=== PATIENT | female | born 1995 | race Caucasian/White ===

== ENCOUNTER 2020-04-15 20:36 | Emergency (ER) | payer OTHER ==
[2020-04-15 21:28] LABS: BASOPHILS % (AUTO) 0.3 %; EOSINOPHILS # (AUTO) 0.1 10^3/uL (0.0-0.7); EOSINOPHILS % (AUTO) 1.2 %; HGB - HEMOGLOBIN 13.2 g/dL (12.0-16.0); LYMPHOCYTES # (AUTO) 2.3 10^3/uL (1.5-3.5); MEAN CORPUSCULAR HEMOGLOBIN 29.5 pg (27.0-31.0); MEAN CORPUSCULAR HGB CONC 32.9 g/dL (32.0-36.0); MEAN CORPUSCULAR VOLUME 89.7 fL (81.0-99.0); MEAN PLATELET VOLUME 9.5 fL (7.9-10.8); MONOCYTES # (AUTO) 0.5 10^3/uL (0.0-1.0); MONOCYTES % (AUTO) 8.4 %; NEUTROPHILS # (AUTO) 3.5 10^3/uL (1.5-6.6); NEUTROPHILS % (AUTO) 53.8 %; PLT - PLATELET COUNT 316 10^3/uL (130-450); RED BLOOD COUNT 4.47 10^6/uL (4.20-5.40); RED CELL DISTRIBUTION WIDTH 12.5 % (12.0-15.0); WHITE BLOOD COUNT 6.4 x10^3/uL (4.8-10.8)
[2020-04-15 21:36] LABS: ALBUMIN/GLOBULIN RATIO 1.2 (1.0-2.2); BILIRUBIN,TOTAL 0.4 mg/dL (0.2-1.0); CALCIUM 9.1 mg/dL (8.5-10.3); CREATININE 0.9 mg/dL (0.4-1.0); TOTAL PROTEIN 7.3 g/dL (6.7-8.2)
[2020-04-15 22:09] LABS: BILIRUBIN,URINE NEGATIVE (NEGATIVE); GLUCOSE, URINE (UA) NEGATIVE (NEGATIVE); KETONES,URINE (UA) NEGATIVE (NEGATIVE); LEUKOCYTE ESTERASE, URINE NEGATIVE (NEGATIVE); NITRITE,URINE NEGATIVE (NEGATIVE); OCCULT BLOOD,URINE LARGE (NEGATIVE); PROTEIN,URINE TRACE mg/dL (NEGATIVE); UROBILINOGEN,URINE 0.2 (NORMAL) E.U./dL (NORMAL)
[2020-04-15 22:20] LABS: BACTERIA,URINE Few /HPF (None Seen); CLARITY,URINE CLEAR (CLEAR); CRYSTALS,URINE 0-2 Calcium Oxalate /LPF; HCG UR QUAL NEGATIVE; RBC,URINE TNTC /HPF (0-5); SQUAMOUS EPITHELIAL CELL,UR FEW Squamous (<= Few)
[2020-04-15 22:21] LABS: YEAST,URINE PRESENT
--- NOTE | 2020-04-15 22:39 | ED Physician Documentation ---
History of Present Illness - Stated complaint Stated Complaint: L RIB PAIN, ABD PAIN - Chief complaint Chief Complaint: Abd Pain - History obtained from History obtained from: Patient - History of Present Illness Timing: Enter time (19:30), Today Pain level max: 8 Pain level now: 3 Improved by: no apparent ameliorating factors, but pain has nearly resolved prior to this evaluation Worsened by: no exacerbating nor inciting factors - Additonal information Additional information: c/o sudden onset left flank pain approximately 7:30 PM tonight immediately after urinating. Pain was severe but has nearly resolved by the time of this evaluation. She says she has had similar episodes in the past but only once was the pain severe enough that she was medically evaluated; she says this was many years ago and she only remembers being told she had to drink more fluids. Review of Systems Constitutional: denies: Fever, Chills, Sweats Cardiac: reports: Reviewed and negative Respiratory: reports: Reviewed and negative GI: reports: Nausea (resolved, but nausea when pain was most severe). denies: Abdominal Pain (left flank pain, but not abdominal pain per se), Vomiting : reports: LMP (current). denies: Dysuria, Frequency, Hematuria PD PAST MEDICAL HISTORY - Past Medical History Past Medical History: No - Present Medications Home Medications: Ambulatory Orders Medication Instructions Recorded Confirmed Multivitamin [Multivitamins] 1 tab PO DAILY 04/15/20 04/15/20 HYDROcod/ACETAM 5/325 [[place] 5/325] 1 - 2 ea PO Q6H PRN #15 tablet 04/16/20 Ondansetron Odt [Zofran] 4 mg TL Q6H PRN #10 tablet 04/16/20 Tamsulosin [Flomax] 0.4 mg PO DAILY #10 capsule 04/16/20 - Allergies Allergies/Adverse Reactions: Allergies Allergy/AdvReac Type Severity Reaction Status Date / Time No Known Drug Allergies Allergy Verified 04/15/20 20:43 - Social History Does the pt smoke?: No Smoking Status: Never smoker Does the pt have substance abuse?: No PD ED PE NORMAL - Vitals Vital signs reviewed: Yes - General General: Alert and oriented X 3, No acute distress, Well developed/nourished - Cardiac Cardiac: RRR, No murmur - Respiratory Respiratory: No respiratory distress, Clear bilaterally - Abdomen Abdomen: Normal bowel sounds, Soft, Non tender, Non distended - Back Back: No CVA TTP Results - Vitals Vitals: Vital Signs - 24 hr 04/15/20 04/15/20 04/16/20 20:43 22:56 00:13 Temperature 36.6 C Heart Rate 77 75 70 Respiratory 16 16 14 Rate Blood Pressure 118/80 107/75 112/71 O2 Saturation 100 100 98 04/16/20 00:41 Temperature Heart Rate 77 Respiratory 16 Rate Blood Pressure 115/74 O2 Saturation 100 Oxygen O2 Source Room air - Labs Labs: Laboratory Tests 04/15/20 04/15/20 04/15/20 21:10 21:10 21:50 WBC 6.4 RBC 4.47 Hgb 13.2 Hct 40.1 MCV 89.7 MCH 29.5 MCHC 32.9 RDW 12.5 Plt Count 316 MPV 9.5 Neut # (Auto) 3.5 Lymph # (Auto) 2.3 [place] # (Auto) 0.5 Eos # (Auto) 0.1 Baso # (Auto) 0.0 Absolute Nucleated RBC 0.00 Nucleated RBC % 0.0 Sodium 137 Potassium 3.9 Chloride 100 L Carbon Dioxide 26 Anion Gap 11.0 BUN 14 Creatinine 0.9 Estimated GFR (MDRD) 76 L Glucose 105 H Calcium 9.1 Total Bilirubin 0.4 AST 17 ALT 17 Alkaline Phosphatase 72 Total Protein 7.3 Albumin 4.0 Globulin 3.3 Albumin/Globulin Ratio 1.2 Lipase 35 Urine Color YELLOW Urine Clarity CLEAR Urine pH 6.0 Ur Specific [place] 1.015 Urine Protein TRACE Urine Glucose (UA) NEGATIVE Urine Ketones NEGATIVE Urine Occult Blood LARGE H Urine Nitrite NEGATIVE Urine Bilirubin NEGATIVE Urine Urobilinogen 0.2 (NORMAL) Ur Leukocyte Esterase NEGATIVE Urine RBC TNTC H Urine WBC 0-3 Ur Squamous Epith Cells FEW Squamous Urine Crystals 0-2 Calcium Oxalate Urine Bacteria Few Urine Yeast PRESENT Ur Microscopic Review INDICATED Urine Culture Comments NOT INDICATED Urine HCG, Qual NEGATIVE - Rads (name of study) CT A/P Radiology: Prelim report reviewed, See rad report PD MEDICAL DECISION MAKING - ED course Complexity details: reviewed results, re-evaluated patient, considered differential, d/w patient ED course: NAD on reevaluation prior to discharge. 4mm proximal left ureteral stone on CT. d/c with analgesia and antinauseant prescriptions as well as flomax in ED and rx for same Departure - Departure Disposition: Home, Self Care Clinical Impression: Renal colic on left side Condition: Good Instructions: ED Stone Renal W Colic Follow-Up: MIRANDA George [Provider Group] Prescriptions: Tamsulosin [Flomax] 0.4 mg PO DAILY #10 capsule HYDROcod/ACETAM 5/325 [[place] 5/325] 1 - 2 ea PO Q6H PRN #15 tablet PRN Reason: Pain Ondansetron Odt [Zofran] 4 mg TL Q6H PRN #10 tablet PRN Reason: Nausea / Vomiting Discharge Date/Time: 04/16/20 00:41
[2020-04-16] MEDS ORDERED: TAMSULOSIN 0.4 MG CAPSULE PO STA (00:30)
[2020-04-16] MEDS ORDERED: HYDROcod/ACET 5/325 Prepack 4 PO STA (00:30)
[2020-04-16 00:42] VITALS: BP 115/74
--- NOTE | 2020-04-16 08:09 | CT Report ---
PROCEDURE: Abdomen/Pelvis WO INDICATIONS: Left flank pain TECHNIQUE: Noncontrast 5 mm thick sections acquired from the diaphragms to the symphysis. 5 mm coronal and sagi ttal reformats were then performed. For radiation dose reduction, the following was used: automated exposure control, adjustment of mA and/or kV according to patient size. COMPARISON: None. FINDINGS: Image quality: Excellent. ABDOMEN: Lung bases: Lung bases are clear. Heart size is normal. Urinary tract: Approximately 4 mm calculus at the left UPJ with mild hydronephrosis. Nonobstructing 2 mm calculus in the left upper pole. Nonobstructing right renal pole calculus in the lower pole measu ring 3 mm. Urinary bladder is unremarkable. Remaining solid abdominal viscera: Normal unenhanced CT appearance of the liver, spleen, pancreas, ga llbladder, and adrenal glands. Peritoneum and bowel: Unenhanced bowel loops demonstrate normal wall thickness and caliber. No free fluid or air. Nodes and vessels: No retroperitoneal or mesenteric adenopathy by size criteria. Aorta and inferior vena cava are normal in caliber. Miscellaneous: No ventral hernias. PELVIS: Genitourinary: Bladder wall thickness is normal. Miscellaneous: No inguinal hernias or adenopathy. Bones: No suspicious bony lesions. No vertebral body compression fractures. IMPRESSION: Approximately 4 mm left UPJ calculus with mild left hydronephrosis. Two additional nonobstructing renal calculi bilaterally. No significant change from preliminary report. Reviewed by: Jeff Garcia MD on 04/16/2020 8:07 AM [facility] Approved by: Jeff Garcia MD on 04/16/2020 8:07 AM PST Station ID: [id number]
== END 2020-04-16 00:41 | disposition home or self-care (01) ==
LOC: ED 20:36
DX: N13.2 Hydronephrosis with renal and ureteral calculous obstruction (principal)
CPT/HCPCS: 36415; 74176; 80053; 81001; 81025; 83690; 85025; 99284; A9270; 81003; 87086

== ENCOUNTER 2020-04-20 01:02 | Emergency (ER) | payer OTHER ==
[2020-04-20 01:29] LABS: BILIRUBIN,URINE NEGATIVE (NEGATIVE); GLUCOSE, URINE (UA) NEGATIVE (NEGATIVE); KETONES,URINE (UA) NEGATIVE (NEGATIVE); LEUKOCYTE ESTERASE, URINE NEGATIVE (NEGATIVE); NITRITE,URINE NEGATIVE (NEGATIVE); OCCULT BLOOD,URINE LARGE (NEGATIVE); PROTEIN,URINE 30 mg/dL (NEGATIVE); UROBILINOGEN,URINE 0.2 (NORMAL) E.U./dL (NORMAL)
[2020-04-20 01:30] LABS: CLARITY,URINE CLEAR (CLEAR); HCG UR QUAL NEGATIVE
[2020-04-20] MEDS ORDERED: ONDANSETRON 4 MG/2 ML VIAL IVP STA (01:35)
[2020-04-20] MEDS ORDERED: KETOROLAC 30 MG/ML VIAL IVP STA (01:35)
[2020-04-20] MEDS ORDERED: SODIUM CHLORIDE 0.9% 1,000 ML IV STA (01:35)
--- NOTE | 2020-04-20 01:36 | ED Physician Documentation ---
PD HPI FEMALE - Stated complaint Stated Complaint: ABD PX/F - Chief complaint Chief Complaint: Abd Pain - History obtained from History obtained from: Patient - History of Present Illness Timing - onset: Today Timing - duration: Hours Timing - details: Abrupt onset, Still present, Waxing and waning Associated symptoms: Abdominal pain, Back pain Contributing factors: Other (Passing a kidney stone). No: Similar symptoms before: Diagnosis (kidney stone on left) Recently seen: Emergency Dept - Additional information Additional information: 25-year-old female seen in the emergency department 5 days ago diagnosed with a proximal 4 mm left ureteral stone. She has had pain on the left flank axis that has undulated and today it is worse in his migrated to the suprapubic area on the left and the patient is unable to control the pain. Review of Systems Constitutional: denies: Fever Eyes: denies: Decreased vision Ears: denies: Ear pain Nose: denies: Congestion Throat: denies: Sore throat Respiratory: denies: Cough GI: reports: Abdominal Pain, Nausea. denies: Vomiting : denies: Dysuria Skin: denies: Rash Musculoskeletal: reports: Back pain. denies: Neck pain Neurologic: denies: Generalized weakness, Focal weakness, Numbness PD PAST MEDICAL HISTORY - Past Medical History Past Medical History: Yes : Kidney stones - Past Surgical History Past Surgical History: No - Present Medications Home Medications: Ambulatory Orders Medication Instructions Recorded Confirmed Multivitamin [Multivitamins] 1 tab PO DAILY 04/15/20 04/20/20 HYDROcod/ACETAM 5/325 [[place] 5/325] 1 - 2 ea PO Q6H PRN #15 tablet 04/16/20 04/20/20 Ondansetron Odt [Zofran] 4 mg TL Q6H PRN #10 tablet 04/16/20 04/20/20 Tamsulosin [Flomax] 0.4 mg PO DAILY #10 capsule 04/16/20 04/20/20 - Allergies Allergies/Adverse Reactions: Allergies Allergy/AdvReac Type Severity Reaction Status Date / Time No Known Drug Allergies Allergy Verified 04/20/20 01:10 - Social History Does the pt smoke?: No Smoking Status: Never smoker Does the pt drink ETOH?: Yes Does the pt have substance abuse?: No - Immunizations Immunizations are current?: Yes - POLST Patient has POLST: No PD ED PE NORMAL - Vitals Vital signs reviewed: Yes (hypertensive mild ) - General General: Alert and oriented X 3, No acute distress, Well developed/nourished - HEENT HEENT: Atraumatic, PERRL, EOMI - Neck Neck: Supple, no meningeal sign, No bony TTP - Cardiac Cardiac: RRR, No murmur - Respiratory Respiratory: No respiratory distress, Clear bilaterally - Abdomen Abdomen: Normal bowel sounds, Soft, Non distended, No organomegaly, Other (mild suprapubic tenderness without garding) - Back Back: No CVA TTP, No spinal TTP - Derm Derm: Normal color, Warm and dry, No rash - Extremities Extremities: No deformity, No edema - Neuro Neuro: Alert and oriented X 3, certified drug counselor 2-12 intact, No motor deficit, No sensory deficit, Normal speech Eye Opening: Spontaneous Motor: Obeys Commands Verbal: Oriented GCS Score: 15 - Psych Psych: Normal mood, Normal affect Results - Vitals Vitals: Vital Signs - 24 hr 04/20/20 04/20/20 01:08 01:12 Temperature 36.8 C 36.8 C Heart Rate 98 98 Respiratory 19 19 Rate Blood Pressure 132/37 H 118/77 O2 Saturation 98 98 Oxygen O2 Source Room air - Labs Labs: Laboratory Tests 04/20/20 04/20/20 04/20/20 01:10 01:10 01:22 WBC 13.8 H RBC 4.15 L Hgb 12.3 Hct 36.9 L MCV 88.9 MCH 29.6 MCHC 33.3 RDW 12.2 Plt Count 290 MPV 9.3 Neut # (Auto) 11.5 H Lymph # (Auto) 1.4 L [place] # (Auto) 0.8 Eos # (Auto) 0.0 Baso # (Auto) 0.0 Absolute Nucleated RBC 0.00 Nucleated RBC % 0.0 Sodium Potassium Chloride Carbon Dioxide Anion Gap BUN Creatinine Estimated GFR (MDRD) Glucose Calcium Total Bilirubin AST ALT Alkaline Phosphatase Total Protein Albumin Globulin Albumin/Globulin Ratio Lipase Urine Color YELLOW Urine Clarity CLEAR Urine pH 6.0 Ur Specific [place] 1.025 Urine Protein 30 H Urine Glucose (UA) NEGATIVE Urine Ketones NEGATIVE Urine Occult Blood LARGE H Urine Nitrite NEGATIVE Urine Bilirubin NEGATIVE Urine Urobilinogen 0.2 (NORMAL) Ur Leukocyte Esterase NEGATIVE Urine RBC 11-25 H Urine WBC 4-5 Ur Squamous Epith Cells RARE Squamous Urine Bacteria Few Ur Microscopic Review INDICATED Urine Culture Comments NOT INDICATED Urine HCG, Qual NEGATIVE 04/20/20 01:22 WBC RBC Hgb Hct MCV MCH MCHC RDW Plt Count MPV Neut # (Auto) Lymph # (Auto) [place] # (Auto) Eos # (Auto) Baso # (Auto) Absolute Nucleated RBC Nucleated RBC % Sodium 136 Potassium 3.7 Chloride 102 Carbon Dioxide 24 Anion Gap 10.0 BUN 15 Creatinine 1.1 H Estimated GFR (MDRD) 60 L Glucose 118 H Calcium 9.0 Total Bilirubin 0.7 AST 24 ALT 20 Alkaline Phosphatase 64 Total Protein 7.4 Albumin 4.2 Globulin 3.2 Albumin/Globulin Ratio 1.3 Lipase 24 Urine Color Urine Clarity Urine pH Ur Specific [place] Urine Protein Urine Glucose (UA) Urine Ketones Urine Occult Blood Urine Nitrite Urine Bilirubin Urine Urobilinogen Ur Leukocyte Esterase Urine RBC Urine WBC Ur Squamous Epith Cells Urine Bacteria Ur Microscopic Review Urine Culture Comments Urine HCG, Qual Procedures - Bedside sono Bedside sono by EMP: With use of bedside ultrasound the left kidney is imaged it is sonographically nontender and there is evidence of significant hydronephrosis. PD MEDICAL DECISION MAKING - ED course Complexity details: reviewed old records, reviewed results, re-evaluated patient, considered differential, d/w patient ED course: 25-year-old female with a 4 mm ureteral stone has had stone migration and she has lost control of her pain. She is administered Toradol and saline here in the emergency department without much relief of her pain she is subsequently and administered Dilaudid and has some improvement in the pain. She is administered a dose of dexamethasone with the hope of eating the stone to pass that final part. Departure - Departure Disposition: 01 Home, Self Care Clinical Impression: Ureterolithiasis Condition: Stable Instructions: ED Stone Renal W Colic Follow-Up: MIRANDA George [Provider Group]
[2020-04-20 01:37] LABS: BACTERIA,URINE Few /HPF (None Seen); SQUAMOUS EPITHELIAL CELL,UR RARE Squamous (<= Few)
[2020-04-20 01:41] LABS: BASOPHILS % (AUTO) 0.2 %; EOSINOPHILS % (AUTO) 0.2 %; HGB - HEMOGLOBIN 12.3 g/dL (12.0-16.0); LYMPHOCYTES # (AUTO) 1.4 10^3/uL (1.5-3.5); LYMPHOCYTES % (AUTO) 10.1 %; MEAN CORPUSCULAR HEMOGLOBIN 29.6 pg (27.0-31.0); MEAN CORPUSCULAR HGB CONC 33.3 g/dL (32.0-36.0); MEAN CORPUSCULAR VOLUME 88.9 fL (81.0-99.0); MEAN PLATELET VOLUME 9.3 fL (7.9-10.8); MONOCYTES # (AUTO) 0.8 10^3/uL (0.0-1.0); MONOCYTES % (AUTO) 5.6 %; NEUTROPHILS # (AUTO) 11.5 10^3/uL (1.5-6.6); NEUTROPHILS % (AUTO) 83.3 %; PLT - PLATELET COUNT 290 10^3/uL (130-450); RED BLOOD COUNT 4.15 10^6/uL (4.20-5.40); RED CELL DISTRIBUTION WIDTH 12.2 % (12.0-15.0); WHITE BLOOD COUNT 13.8 x10^3/uL (4.8-10.8)
[2020-04-20 01:51] LABS: ALBUMIN 4.2 g/dL (3.2-5.5); ALBUMIN/GLOBULIN RATIO 1.3 (1.0-2.2); BILIRUBIN,TOTAL 0.7 mg/dL (0.2-1.0); CREATININE 1.1 mg/dL (0.4-1.0); TOTAL PROTEIN 7.4 g/dL (6.7-8.2)
[2020-04-20] MEDS ORDERED: HYDROmorphone 1 MG/ML CARPUJECT IVP STA (02:16)
[2020-04-20] MEDS ORDERED: DEXAMETHASONE 10 MG/ML VIAL IVP STA (02:40)
[2020-04-20 03:12] VITALS: BP 119/75
== END 2020-04-20 03:27 | disposition home or self-care (01) ==
LOC: ED 01:02
DX: N20.1 Calculus of ureter (principal)
CPT/HCPCS: 36415; 80053; 81001; 81025; 83690; 85025; 96374; 96375; 99284; 99285; J1170; 81003; 87086

== ENCOUNTER 2020-12-20 15:32 | Outpatient (CLI) | payer OTHER | END 2020-12-20 23:59 | disposition home or self-care (01) | LOC: LAB.N 15:32 | PROVIDERS: ATTEND Nurse Practitioner | DX: R07.0 Pain in throat (principal); Z20.822 Contact with and (suspected) exposure to COVID-19 | CPT/HCPCS: 87070 ==

== ENCOUNTER 2021-02-04 08:00 | Outpatient (CLI) | payer OTHER ==
[2021-02-04 23:28] LABS: BACTERIAL VAGINOSIS DNA NEGATIVE (NEGATIVE); CANDIDA GLABRATA DNA NEGATIVE (NEGATIVE); CANDIDA GROUP DNA POSITIVE (NEGATIVE); CANDIDA KRUSEI DNA NEGATIVE (NEGATIVE); TRICHOMONAS VAGINALIS DNA NEGATIVE (NEGATIVE)
[2021-02-05 00:15] LABS: CHLAMYDIA TRACHOMATIS DNA NEGATIVE (NEGATIVE); NEISSERIA GONORRHOEAE DNA NEGATIVE (NEGATIVE); TRICHOMONAS VAGINALIS DNA NEGATIVE (NEGATIVE)
== END 2021-02-04 08:01 | disposition home or self-care (01) ==
LOC: LAB 08:00
PROVIDERS: ATTEND Nurse Practitioner
DX: N89.8 Other specified noninflammatory disorders of vagina (principal)
CPT/HCPCS: 87086; 87491; 87591; 87661; 87801

== ENCOUNTER 2021-06-18 16:35 | Emergency (ER) | payer OTHER ==
[2021-06-18 16:50] VITALS: BP 124/74
== END 2021-06-18 18:54 | disposition left against medical advice (07) ==
LOC: ED 16:35
DX: Z53.21 Procedure and treatment not carried out due to patient leaving prior to being seen by health care provider (principal)

== ENCOUNTER 2022-04-25 18:01 | Emergency (ER) | payer OTHER ==
--- NOTE | 2022-04-25 19:29 | ED Physician Documentation ---
History of Present Illness - Stated complaint Stated Complaint: SPIDER BITE - Chief complaint Chief Complaint: Wound - Additonal information Additional information: 19-year-old female presents emergency department for evaluation of what she b elieves to be a spider bite on her left medial ankle. At around 11 PM she was laying in bed felt a bite on her medial ankle and brushed something away. Later this morning she did find a spider in the region that does not appear to be a black . Since then she has had pain in this area. No fevers or red streaking. Tetanus is up-to-date. Review of Systems Constitutional: reports: Reviewed and negative Throat: reports: Reviewed and negative Cardiac: reports: Reviewed and negative Respiratory: reports: Reviewed and negative GI: reports: Reviewed and negative : reports: Reviewed and negative Skin: reports: Bite / sting PD PAST MEDICAL HISTORY - Past Medical History : Kidney stones - Past Surgical History Past Surgical History: No - Present Medications Home Medications: Ambulatory Orders Medication Instructions Recorded Confirmed No Known Home Medications 04/25/22 04/25/22 - Allergies Allergies/Adverse Reactions: Allergies Allergy/AdvReac Type Severity Reaction Status Date / Time sulfamethoxazole Allergy Anaphylaxis Verified 04/25/22 18:10 [From Bactrim] trimethoprim [From Bactrim] Allergy Anaphylaxis Verified 04/25/22 18:10 - Social History Does the pt smoke?: No Smoking Status: Never smoker Does the pt drink ETOH?: Yes Does the pt have substance abuse?: No - Immunizations Immunizations are current?: Yes - POLST Patient has POLST: No PD ED PE EXPANDED - Extremities Extremities: Left ankle (Left medial ankle there appears to be a bug bite with mild surrounding erythema but no induration fluid collection or abscess formation. Full range of motion of the ankle in all planes. Normal gait. No lymphangitis) Results - Vitals Vitals: Vital Signs - 24 hr 04/25/22 18:08 Temperature 36.7 C Heart Rate 122 H Respiratory 14 Rate Blood Pressure 130/80 O2 Saturation 98 Oxygen O2 Source Room air PD MEDICAL DECISION MAKING - ED course Complexity details: reviewed results, considered differential, d/w patient ED course: 19-year-old female presents emergency department for evaluation of a bug bite to her left medial ankle. She states she has had excruciating pain in this region since the bite. On exam I do appreciate a small lesion that may be a bug bite but no surrounding erythema or induration suggestive of cellulitis or abscess formation. She has normal gait. We discussed the on likely possibility of a venomous bite. We also discussed routine conservative care measures that can include heat or ice as well as as needed Benadryl. Emergent return precautions discussed Departure - Departure Disposition: 01 Home, Self Care Clinical Impression: Bug bite Qualifiers: Encounter type: initial encounter Qualified Code(s): W57.XXXA - Bitten or stung by nonvenomous insect and other nonvenomous arthropods, initial encounter Comments: Janet you are seen today because yesterday evening you were bitten by a bug or spider on your left medial ankle. In [facility] the only poisonous spider known is a black which can cause some localized skin tissue reactions. However after nearly 24 hours you do not appear to be having any significant side effects from a venomous bite. There is a small amount of redness in the area where you are bitten but nothing to suggest a skin infection or abscess collection. I would expect that this begins to feel better over the next few days. You can take Tylenol or ibuprofen [id number]. If you find that heat or ice to this bite feels better you can apply it. Please return to the ER for any worsening symptoms.
[2022-04-25 19:38] VITALS: BP 120/68
== END 2022-04-25 19:38 | disposition home or self-care (01) ==
LOC: ED 18:01
DX: S90.562A Insect bite (nonvenomous), left ankle, initial encounter (principal); T63.481A Toxic effect of venom of other arthropod, accidental (unintentional), initial encounter; Y92.003 Bedroom of unspecified non-institutional (private) residence as the place of occurrence of the external cause
CPT/HCPCS: 99281